=== PATIENT | female | born 1975 ===

== ENCOUNTER 2021-02-15 08:53 | Outpatient (CLI) | payer SELFPAY ==
--- NOTE | 2021-02-15 08:45 | RT.EKG_ITS ---
APPROVED REPORT Exam: Resting ECG Reason for Exam: palpitations Patient Location: O HR:85 bpm ECG Measurements Heart Rate 85 AXIS MI 156 P 12 QRSd 102 QRS 1 QT 443 T 17 QTc 527 Conclusion Sinus rhythm...normal P axis, V-rate 50- 99 Nonspecific T abnormalities, diffuse leads...T <-0.10mV, ant/lat/inf Prolonged QT interval...QTc >510mS
== END 2021-02-15 08:54 | disposition home or self-care (01) ==
LOC: DI.CARD 08:54
PROVIDERS: Visit Provider Internal Medicine Cardiovascular Disease
DX: R00.2 Palpitations (principal); R06.00 Dyspnea, unspecified
CPT/HCPCS: 93010

== ENCOUNTER 2021-03-24 00:49 | Outpatient (CLI) | payer OTHER, SELFPAY ==
--- NOTE | 2021-03-24 06:45 | DI.NM_ITS ---
APPROVED REPORT Exam: Exercise Treadmill Patient Location: Out-Patient Room/Bed: Stress Nurse: Laura Pelletier RN Ordering Provider:CHAD BALTAZARD, Contact Number: [phone] BMI: 0 Baseline Rhythm: Sinus Rhythm Comment: T wave inversions in leads II, III, aVF, V2-v6 Indications: Dyspnea on exertion, Abnormal EKG Medical History Medical History: DAVISON, Heart murmur, Palpitations, Refractory migrain, Dizziness, HTN, Prediabetes, As thma Cardiac Medications: Propranolol, Omeprazole, Albuterol sulfate Allergies: Penicillins Cardiac Risk Factors: FHX of CAD, HTN, DM (pre), Asthma Previous Cardiac Procedures: None Pretest Chest Pain Characteristics: No chest pain Exercise History: Sedentary Physical Disabilities: None Lung Sounds: Clear to auscultation Heart Sounds: Regular Stress Test Details Test: Exercise stress testing was performed using a Shorty protocol. Nuclear Acquisition: Rest Tc-99m/Stress Tc-99m 1 day Rest Isotope: Tc-99m Sestamibi. Dose: 11.9 Date: 03/24/2021 Injection Time: 0855 Stress Isotope: Tc-99m Sestamibi. Dose: 37.5 Date: 03/24/2021 Injection Time: 1027 HR Resting HR Supine: 64 bpm Max Heart Rate (APMHR): 176.902130 bpm Resting HR Standin bpm Target HR (85% APMHR): 149.057071 bpm Max HR Achieved: 160 bpm % of APMHR: 90.91 Recovery HR: 82 bpm HR response to stress: Normal HR response to stress Comment: Propranolol held for 48 hours BP Resting BP Supine: 122/80 mmHg Resting BP Standin/82 mmHg Max BP: 158/84 mmHg Recovery BP: 134/86 mmHg BP response to stress: Normal blood pressure response to stress. ECG Resting ECG: Sinus Rhythm Ectopy: PVCs Comment: inverted T waves in leads II, III, aVF, V2-V6 Stress ECG: Sinus Tachycardia ST Change: No significant ST segment changes noted Arrhythmia: frequent PVCs Comment: flipped T waves in leads II, III, aVF, V2-V6 Recovery ECG: Sinus Rhythm, , Clear Recovery ST Change: No significant ST segment changes noted Recovery Arrhythmia: PVCs Comment: T waves returning to baseline inversions by recovery minute 8 Clinical Reason for Termination: Dyspnea, Fatigue Stress Symptoms: Chest pain, Dyspnea, Dizziness Exercise duration: 8 min59 sec Highest Stage Reached: Stage 3: 3.4 mph at 14% grade. Exercise capacity: 10.16 METs [place] Treadmill Score: 5 Rate Pressure Product: [id number] Stress ECG Conclusion 1. The resting electrocardiogram showed nondiagnostic ST-T abnormalities 2. Patient exercised on the Shorty protocol and completed a workload of 10.16 METS 3. Normal heart rate and blood pressure response to exercise. The patient achieved 90% of predicted heart rate for age 4. Electrocardiographically there was no evidence of myocardial ischemia 5. Sporadic PVCs were noted [place] Treadmill Score is 5 which is Low risk. Stress Test Summary STAGE Time (mins) Speed (mph) Grade (%) HR BP SYMPTOMS METS Supine 64 122/80 Standing 86 122/82 1 3 1.7 10 125 124/82 SpO2 98%, mild SOB and lightheadedness 4.6 2 6 2.5 12 145 126/84 moderate SOB, lightheadedness 7 3 9 3.4 14 160 134/90 2/10 chest pain 10.2 1 min recovery 135 142/78 SpO2 97%; moderate SOB, lightheadedness 3 min recovery 92 158/84 4/10 chest pain 6 min recovery 82 134/86 Symptoms resolved Patient endorsed 2/10 left sternal chest pain described as an ache, occuring in the 3rd stage of exer cise. Pain increased to a 4/10 2 minutes into recovery period, decreasing in severity untiil chest pa in resolved by minute 5 of recovery period. 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 MPI Conclusion Normal myocardial perfusion. No evidence of myocardial ischemia or prior infarction EF 65%, normal wall motion Radiologist Interpretation Radiologist agrees with Planner Chief's Interpretation. Radiologist Interpretation by: Lisa Beard MD Interpretation Date/Time: 03/28/2021 08:37:30
== END 2021-03-24 01:09 ==
PROVIDERS: PCP Internal Medicine; Visit Provider Internal Medicine Cardiovascular Disease
DX: R06.00 Dyspnea, unspecified (principal); R94.31 Abnormal electrocardiogram [ECG] [EKG]; R73.03 Prediabetes; I10 Essential (primary) hypertension; Z82.49 Family history of ischemic heart disease and other diseases of the circulatory system; J45.909 Unspecified asthma, uncomplicated; I49.3 Ventricular premature depolarization
CPT/HCPCS: 78452; 93017